=== PATIENT | male | born 1935 | race Caucasian/White ===

== ENCOUNTER → 2016-10-02 | Outpatient (CLI) | payer MEDICARE, OTHER | END | disposition home or self-care (01) | LOC: GMAL 10:42 | PROVIDERS: ATTEND Family Medicine | DX: D51.3 Other dietary vitamin B12 deficiency anemia (principal) ==

== ENCOUNTER → 2017-03-31 | Outpatient (CLI) | payer MEDICARE, OTHER | END | disposition home or self-care (01) | LOC: GMAL 11:10 | PROVIDERS: ATTEND Family Medicine | DX: D51.3 Other dietary vitamin B12 deficiency anemia (principal); R53.83 Other fatigue ==

== ENCOUNTER → 2017-06-02 | Outpatient (CLI) | payer MEDICARE, OTHER | END | disposition home or self-care (01) | LOC: GMAL 12:40 | PROVIDERS: ATTEND Family Medicine | DX: Z12.5 Encounter for screening for malignant neoplasm of prostate (principal) ==

== ENCOUNTER 2017-10-24 11:07 | Emergency (ER) | payer MEDICARE, OTHER ==
[2017-10-24] MEDS ORDERED: ONDANSETRON INJ 4 MG/2 ML VIAL IV ONE (11:27)
--- NOTE | 2017-10-24 11:27 | ED.PDOC ---
History of Present Illness - General Chief Complaint: GI Problem Stated Complaint: Diarrhea, vomiting, abdominal cramping Time Seen by Provider: 10/24/17 11:23 Information Source: patient - History of Present Illness Abdominal Pain Onset Location: RUQ, RLQ, flank Pain Radiation: no radiation Quality: moderate, cramping Timing/Duration: 1 hour Improving Factors: nothing Worsening Factors: nothing Associated Symptoms: back pain, diarrhea, fever/chills Review of Systems - Review of Systems Constitutional: States: chills, diaphoresis, weakness EENTM: Denies: blurred vision, double vision, ear pain, nose pain, throat pain, mouth pain Respiratory: Denies: cough, short of breath Cardiology: Denies: chest pain, edema, syncope Gastrointestinal/Abdominal: States: abdominal pain, diarrhea, nausea. Denies: constipation, vomiting Musculoskeletal: States: back pain. Denies: joint pain, joint swelling, muscle pain Skin: Denies: dryness, lesions Neurological: Denies: anxiety, tingling, tremors, weakness Endocrine: Denies: increased hunger, increased thirst, increased urine Hematologic/Lymphatic: Denies: blood clots, easy bleeding, easy bruising All other Systems: Reviewed and Negative Family Medical History - Family History Father Living Status: Cause of : CVA Physical Exam - Physical Exam General Appearance: Alert, Comfortable Eyes, Ears, Nose, Throat Exam: PERRL/EOMI, normal ENT inspection Neck: non-tender, full range of motion, supple Respiratory: lungs clear, normal breath sounds, no respiratory distress, no accessory muscle use Cardiovascular/Chest: normal peripheral pulses, regular rate, rhythm Peripheral Pulses: No deficit Gastrointestinal/Abdominal: normal bowel sounds, non tender, soft, no organomegaly Back Exam: normal inspection, no CVA tenderness, no vertebral tenderness Extremity: normal range of motion, non-tender, normal inspection 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 HAS RT SIDED ABD CRAMPING/BACK PAIN THAT STARTED AFTER THE ABD PAIN. WOULD BE CONCERNED FOR COLITS/DIVERTICULITIS, FOOD BORNE ILLNESS, DEHYDRATION, ELECTROLYTE DERANGMENT, ACS. 10/24/17 13:47 PT HAS MILD LEUKOCYTOSIS. NO RECURRENT DIARRHEA. CT SHOWS A RECENTLY PASSED URETERAL STONE. WHILE THIS MAY EXPLAIN THE FLANK PAIN BUT WOULD EXPLAIN THE DIARRHEA. WILL TREAT WITH PAIN MEDS, STRICT FOLLOW UP AND RETURN INSTRUCTIONS. - Results/Orders Results/Orders: 10/24/17 11:24 Abdoment/Pelvis w/o Contrast [CT] Stat 10/24/17 11:30 EKG STAT 10/24/17 11:36 CARDIAC ENZYME GROUP Stat 10/24/17 11:37 TROPONIN-I Stat Laboratory Results - last 24 hr 10/24/17 10/24/17 11:37 11:37 WBC 11.3 H RBC 4.42 L Hgb 13.3 L Hct 39.2 L MCV 88.8 MCH 30.0 MCHC 34.0 RDW 15.0 H Plt Count 178 MPV 8.8 Absolute Neuts (auto) 8.20 H Absolute Lymphs (auto) 2.20 Absolute Monos (auto) 0.70 Absolute Eos (auto) 0.10 Absolute Basos (auto) 0.10 Neutrophils % 72.6 Lymphocytes % 19.7 L Monocytes % 5.8 Eosinophils % 1.0 Basophils % 0.9 Sodium 139 Potassium 4.1 Chloride 104 Carbon Dioxide 26 Anion Gap 13.1 BUN 15 Creatinine 1.02 BUN/Creatinine Ratio 14.7 Random Glucose 131 H Serum Osmolality 280.2 Calcium 8.9 Total Bilirubin 0.4 AST 19 ALT 13 Alkaline Phosphatase 67 Serum Total Protein 7.3 Albumin 3.8 Globulin 3.5 Albumin/Globulin Ratio 1.1 - EKG/XRAY/CT EKG: Reymundo - SINUS REYMUNDO CARDIC AT 54. AXIS IS NORMAL. INTERVALS ARE NORMAL. T WAVE INVERSION IN II AND III. NO ACUTE ST SEGMENT ABNORMALITIES. IMPRESSION: SINUS BRADYCARDIA. Departure - Departure Clinical Impression: Flank pain, Nausea & vomiting, Ureteral colic, Bradycardia Abdominal pain Qualifiers: Abdominal location: right lower quadrant Qualified Code(s): R10.31 - Right lower quadrant pain Leukocytosis Qualifiers: Leukocytosis type: unspecified Qualified Code(s): D72.829 - Elevated white blood cell count, unspecified Time of Disposition: 13:50 Disposition: Discharge to Home or Self Care Condition: Good Departure Forms: ED Discharge - Pt. Copy, Patient Portal Self Enrollment Instructions: Diarrhea, DI for Abdominal Pain-Adult Diet: resume usual diet Activity: increase activity as tolerated Referrals: Hair Queen III, MD [Primary Care Provider] - 1-2 Weeks Prescriptions: Acetaminophen W/ Codeine [Tylenol W/ CODEINE #3] 1 ea PO Q4HR #20 Dicyclomine HCl [Bentyl] 20 mg PO Q8HRS #20 tab Ondansetron [Zofran Odt] 4 mg PO Q8HRS #20 tab Home Medications: Ambulatory Orders Acetaminophen W/ Codeine [Tylenol W/ CODEINE #3] 1 ea PO Q4HR #20 10/24/17 Dicyclomine HCl [Bentyl] 20 mg PO Q8HRS #20 tab 10/24/17 Ondansetron [Zofran Odt] 4 mg PO Q8HRS #20 tab 18
--- NOTE | 2017-10-24 12:21 | CT ---
EXAM DESCRIPTION: Abdoment/Pelvis w/o Contrast: Computed Tomography. CLINICAL HISTORY: ABD PAIN/FLANK PAIN, DIARRHEA COMPARISON: None. TECHNIQUE: Spiral-axial scans at 5.0 mm intervals through the abdomen and pelvis. Coronal and sagittal 2.0mm reconstructions. No IV or oral contrast. Total Exam DLP: 1015.28 mGy-cm. This exam was performed according to our departmental CT dose-optimization program which includes automated exposure control, adjustment of the mA and/or kV according to patient size and/or use of iterative reconstruction technique; to reduce radiation dose to as low as reasonably achievable (ALARA). FINDINGS: Kidneys and Ureters: Mild hydronephrosis right kidney. Less than 2 mm diameter radiodense objects in the superior and inferior collecting system. Minimal distention of the mid and distal right ureter. 3.9 x 2.3 mm radiodense stone in the inferior right lateral posterior urinary bladder. Bilateral perinephric stranding symmetric. No radiodense stones left kidney with no left hydroureter or periureteral edema. Pelvic Organs: Surgical clips in the pelvis with minimal fatty stranding. No definite fluid in the anterior peritoneal reflection and no soft tissue masses. Lung and pleura bases: Bilateral posterior dependent lower lobe atelectasis with no effusion. Coronary artery stents. Liver, spleen, stomach, and adrenal glands: Small sliding gastric hernia. No focal lesions in the other solid organs with normal size. Pancreas, Gallbladder, Ducts: Fatty infiltration of the pancreas. Gallbladder visualized. Common bile duct nondistended. Aorta: Minimal arthroscopic calcification including some of the ostia of the major branch vessels. Normal caliber. Small Bowel: Unremarkable. Terminal Ileum/Cecum: negative. Appendix not seen. Normal density of surrounding fat. Colon: Decompressed with diverticula descending colon and sigmoid. Minimal redundancy of the sigmoid. No diverticula or complications. Mesentery: Irregular calcification and soft tissue stranding abutting the junction of the distal duodenum and proximal jejunum in the midline abdomen. No definite soft tissue mass. No surgical clips. No free air or free fluid. No ascites. Spine and Bony PElvis: Disc space narrowing L4-5 with spondylosis and significant bilateral foraminal narrowing. Gas formation in the L5-S1 disc with disc space narrowing and bilateral significant foraminal narrowing. Minimal bilateral joint space narrowing hips. No bone destruction. Abdominal Wall/Back Soft Tissues: Bilateral small fatty short inguinal hernias not containing bowel. IMPRESSION: 1. 3.9 mm stone recently passed into the urinary bladder from the right kidney and ureter. Mild hydronephrosis and hydroureter with periureteral edema. Smaller nonobstructing stones in the right kidney. 2. No abdominal or pelvic mass. No free fluid or free air. Old surgical scarring with calcification, no soft tissue mass lower mid epigastrium abutting the junction of the duodenum and proximal jejunum. Small sliding gastric hiatal hernia. 2. Atherosclerotic calcifications in the aorta. Coronary artery stents. Fatty infiltration of the pancreas. Periarticular versus of the distal colon without diverticulitis. Spondylosis L4-5 and L5-S1 with foraminal narrowing. Small bilateral short fatty inguinal hernias not containing bowel. Electronically signed by: Estrada Angeles MD 10/24/2017 12:21 PM [facility]
[2017-10-24 16:05] VITALS: BP 167/74; TEMP 98.1; O2SAT 97
== END 2017-10-24 15:00 | disposition home or self-care (01) ==
LOC: ER 11:07
DX: N13.2 Hydronephrosis with renal and ureteral calculous obstruction (principal); R19.7 Diarrhea, unspecified; R00.1 Bradycardia, unspecified; D72.829 Elevated white blood cell count, unspecified
CPT/HCPCS: 36415; 74176; 80053; 82550; 82553; 84484; 85025; 93005; J2405

== ENCOUNTER → 2017-11-26 | Outpatient (CLI) | payer MEDICARE, OTHER ==
--- NOTE | 2017-11-26 15:33 | US ---
EXAM DESCRIPTION: Carotid Duplex CLINICAL HISTORY: OCCLUSION AND STENOSIS COMPARISON: None Available. TECHNIQUE: Carotid Doppler ultrasound FINDINGS: Right Submitted images show tortuous right CCA with mild intimal thickening. There is soft plaque at the carotid bulb without significant stenosis. The following flow velocities were obtained: Common carotid artery peak systolic flow velocity measures 75 cm/s. Internal carotid artery peak systolic flow velocity measures 43 cm/s. External carotid artery peak systolic flow velocity measures 76 cm/s. Flow in the right vertebral artery is not well seen. Axial images show 15% area stenosis of the right internal carotid artery above the bulb. There is 27% area stenosis of the right carotid bulb. Left Submitted images show normal caliber of the left common carotid artery with calcified plaque at the bifurcation. Axial images show 77% area stenosis of the left ICA and 54% area stenosis of the left carotid bulb. No significantly elevated flow velocities. The following flow velocities were obtained: Common carotid artery peak systolic flow velocity measures 93 cm/s. Internal carotid artery peak systolic flow velocity measures 10 8 cm/s. External carotid artery peak systolic flow velocity measures 53 cm/s. Flow in the left vertebral artery is antegrade. The internal carotid to common carotid peak systolic flow velocity ratios are normal at 0.6 on the right and 1.2 on the left. IMPRESSION: No significantly elevated flow velocities to suggest hemodynamically significant stenosis. Transverse sonographic images suggest 77% area stenosis of the left ICA and 54% area stenosis of the left carotid bulb. The right vertebral artery was not well visualized. Electronically signed by: Suresh Villalba MD 11/26/2017 3:31 PM CDT
--- NOTE | 2017-11-26 15:37 | US ---
EXAM DESCRIPTION: Abdomen,Complete CLINICAL HISTORY: ABDOMIN PAIN COMPARISON: CT abdomen and pelvis from October 24, 2017 TECHNIQUE: Complete abdominal ultrasound FINDINGS: Visualized portions of the pancreas are unremarkable. No peripancreatic fluid. Bowel gas obscures some areas. Normal caliber of the aorta. Normal appearance of the inferior vena cava. Liver parenchyma is homogeneous in texture with normal echogenicity. No liver mass or intrahepatic bile duct dilatation. No liver surface irregularity. Normal appearance of hepatic veins and portal vein. Liver length of 15 cm is normal. Gallbladder appears normal with no intraluminal stones. No gallbladder wall thickening. Common bile duct is normal in caliber measuring 5.4 mm. The right kidney measures 9.6 cm in length. Normal to mildly increased renal cortical echogenicity. The renal cortical thickness appears decreased at the upper pole suggesting scarring. No right renal mass, shadowing stone or cyst. There is no hydronephrosis. Spleen is normal in size. No focal splenic lesion. The left kidney measures 10 cm in length. Mildly increased renal cortical echogenicity. Correlate with renal function tests. The renal cortical thickness appears mildly decreased. No left renal mass, shadowing stone or cyst. There is no hydronephrosis. IMPRESSION: Mildly increased renal cortical echogenicity with areas of cortical thinning. Correlate with renal function tests. No acute upper abdominal process. Electronically signed by: Suresh Villalba MD 11/26/2017 3:36 PM CDT
== END | disposition home or self-care (01) ==
LOC: US 08:13
PROVIDERS: ATTEND Family Medicine
DX: I65.23 Occlusion and stenosis of bilateral carotid arteries (principal); R10.9 Unspecified abdominal pain

== ENCOUNTER → 2017-12-10 | Outpatient (CLI) | payer MEDICARE, OTHER ==
--- NOTE | 2017-12-10 14:37 | CT ---
EXAM DESCRIPTION: CTA Neck CLINICAL HISTORY: 82 years, Male, CAROTID ARTERY STENOSIS COMPARISON: Carotid Doppler sonogram November 26, 2017 TECHNIQUE: Rapid bolus administration of standard adult dose of nonionic iodinated IV contrast was performed with thin-section axial scanning of the neck performed in a dynamic fashion. Reconstructed multiplanar and three dimensional MIP images created on a separate dedicated workstation are reviewed along with the source axial images and stored in the patient's medical record. FINDINGS: Axial source data images reveal positive enhancement of the aortic arch and origins of right brachiocephalic, left common carotid and left subclavian arteries. There is tortuosity of the vascular origins. Positive enhancement of the cervical carotid and vertebral arteries. The left vertebral artery is dominant and the right is very small. Axial images show positive enhancement of the internal carotid and external carotid arteries at the carotid bifurcations bilaterally. Calcified and noncalcified plaque is seen in the bilateral carotid bulbs, left greater than right. Recent carotid Doppler sonogram axial images suggested 77% stenosis of the left ICA. This does not appear to be the case on the contrast-enhanced CT images. There is normal enhancement of internal carotid arteries from the carotid bifurcation to the skull base. Positive enhancement of the vessels of the [place] of [place]. No cervical mass or adenopathy. Reformatted coronal and sagittal images show widely patent origins of right internal and external carotid arteries. There is plaque at the right carotid bulb without significant stenosis. Narrowing is approximately 25-30% in the right carotid bulb with widely patent ICA above the level of the bulb. Calcification of the carotid siphon is noted. In evaluating the left carotid bifurcation, soft plaque and calcified plaque is seen in the left carotid bulb extending into the origin of the left ICA. There is approximately 50-60% % narrowing of the bulb. The left external carotid artery is widely patent. Above the bulb, left ICA is widely patent. Normal enhancement to the skull base. There is calcification of the carotid siphon. Coronal reformatted images would suggest mild approximately 50% narrowing of the left carotid bulb. Above the level of the bulb and the left ICA is widely patent. Mild calcified plaque at the origin of the left external carotid artery. Degenerative changes are seen in the mid and lower C-spine. Shaded surface display and MIP images of the carotid bifurcations are evaluated. Findings suggest mild narrowing of the right carotid bulb approximately 20% and with moderate narrowing of the left carotid bulb approximately 50-60 %. IMPRESSION: 25% narrowing of the right carotid bulb. 50-60% narrowing of the left carotid bulb. Dominant left vertebral artery. This exam was performed according to our departmental dose-optimization program, which includes automated exposure control, adjustment of the mA and/or kV according to patient size and/or use of iterative reconstruction technique. Total DLP dose 75.22 mGycm. Electronically signed by: Suresh Villalba MD 12/10/2017 2:35 PM CDT
== END ==
LOC: CT 08:58
PROVIDERS: ATTEND Family Medicine
DX: I65.23 Occlusion and stenosis of bilateral carotid arteries (principal)

== ENCOUNTER 2018-04-20 05:32 | Day surgery (SDC) | payer MEDICARE, OTHER ==
[2018-04-20] MEDS ORDERED: TROP 1%/CYCLOPEN 1%/PHENYL 2% DROPS ONE (05:58)
[2018-04-20] MEDS ORDERED: PROPARACAINE 0.5% OPHTH SOL 15 ML BTTL ONE (05:58)
[2018-04-20] MEDS ORDERED: MIDAZOLAM INJ 2 MG/2 ML VIAL ONE (08:48)
[2018-04-20] MEDS ORDERED: PROPARACAINE 0.5% OPHTH SOL 15 ML BTTL RIGHT_EYE ONE (08:50)
[2018-04-20] MEDS ORDERED: TOBRAMYCIN SULF 0.3 % OPHT SOL 1 DROP RIGHT_EYE ONE ×2 (09:01→09:17)
[2018-04-20] MEDS ORDERED: LIDOCAINE 1% PF 2 ML AMP INJ ONE (09:01)
[2018-04-20] MEDS ORDERED: DEXAMETHASONE 0.1% OPHTH SOL 1 DROP RIGHT_EYE ONE ×2 (09:01→09:17)
[2018-04-20] MEDS ORDERED: BRIMONIDINE 0.2% OPHTH DROPS RIGHT_EYE ONE ×2 (09:02→09:17)
== END 2018-04-20 10:10 | disposition home or self-care (01) ==
LOC: AMB 05:32
PROVIDERS: ATTEND Ophthalmology
DX: H25.11 Age-related nuclear cataract, right eye (principal); I10 Essential (primary) hypertension; I25.10 Atherosclerotic heart disease of native coronary artery without angina pectoris; E66.9 Obesity, unspecified; Z88.0 Allergy status to penicillin; Z91.013 Allergy to seafood; Z79.82 Long term (current) use of aspirin; Z79.899 Other long term (current) drug therapy
CPT/HCPCS: 00142; 66984; J2250

== ENCOUNTER 2018-05-04 05:33 | Day surgery (SDC) | payer MEDICARE, OTHER ==
[2018-05-04] MEDS ORDERED: TROP 1%/CYCLOPEN 1%/PHENYL 2% DROPS ONE (08:31)
[2018-05-04] MEDS ORDERED: PROPARACAINE 0.5% OPHTH SOL 15 ML BTTL ONE (08:31)
[2018-05-04] MEDS ORDERED: PROPARACAINE 0.5% OPHTH SOL 15 ML BTTL LEFT_EYE ONE (09:35)
[2018-05-04] MEDS ORDERED: MIDAZOLAM INJ 2 MG/2 ML VIAL ONE (09:38)
[2018-05-04] MEDS ORDERED: LIDOCAINE 1% PF 2 ML AMP INJ ONE (09:46)
[2018-05-04] MEDS ORDERED: DEXAMETHASONE 0.1% OPHTH SOL 1 DROP LEFT_EYE ONE ×2 (09:47→09:58)
[2018-05-04] MEDS ORDERED: TOBRAMYCIN SULF 0.3 % OPHT SOL 1 DROP LEFT_EYE ONE ×2 (09:48→09:58)
[2018-05-04] MEDS ORDERED: BRIMONIDINE 0.2% OPHTH DROPS LEFT_EYE ONE ×2 (09:48→09:58)
== END 2018-05-04 10:38 | disposition home or self-care (01) ==
LOC: AMB 05:33
PROVIDERS: ATTEND Ophthalmology
DX: H25.12 Age-related nuclear cataract, left eye (principal); I10 Essential (primary) hypertension; I25.10 Atherosclerotic heart disease of native coronary artery without angina pectoris; Z79.899 Other long term (current) drug therapy
CPT/HCPCS: 00142; 66984; J2250

== ENCOUNTER → 2018-06-08 | Outpatient (CLI) | payer MEDICARE, OTHER | LOC: GMAL 11:07 | PROVIDERS: ATTEND Family Medicine | DX: D51.3 Other dietary vitamin B12 deficiency anemia (principal); Z12.5 Encounter for screening for malignant neoplasm of prostate; R53.83 Other fatigue; E55.9 Vitamin D deficiency, unspecified | CPT/HCPCS: 82306; 82607; 84443; G0103 ==

== ENCOUNTER 2018-09-28 14:15 | Emergency (ER) | payer MEDICARE, OTHER ==
[2018-09-28] MEDS ORDERED: GLUCAGON INJ 1 MG VIAL IM ONE (14:36)
[2018-09-28] MEDS ORDERED: LIDOCAINE HCL 2% (MOUTH-THROAT) 15 ML UD MT ONE (15:11)
--- NOTE | 2018-09-28 16:15 | ED.PDOC ---
History of Present Illness - General Chief Complaint: ENT Problem Stated Complaint: throat discomfort Time Seen by Provider: 09/28/18 14:18 Source: patient Exam Limitations: no limitations - History of Present Illness Initial Comments: the patient's 83-year-old male presenting to the emergency room with what appears to be a distal esophageal food bolus impaction. The patient does have a history of esophageal stricture and was dilated approximately 4 years ago he thinks. He has had a couple of episodes of food hanging up recently but they passed eventually. This time it has been present for a little more than 5 hours. No distress but he is unable to pass even any liquids. It is uncomfortable for him. Vital signs are stable. He handles his secretions well. Timing/Duration: 4-6 hours Severity: moderate Improving Factors: nothing Worsening Factors: nothing Associated Symptoms: denies symptoms Allergies/Adverse Reactions: Allergies Penicillins Allergy (Verified 09/28/18 14:35) Unknown Shellfish Allergy Allergy (Verified 09/28/18 14:35) Rash Home Medications: Ambulatory Orders Acyclovir 5 % Cream [Zovirax Cream] 5 gm TOP PRN 09/28/18 Aspirin [Aspirin Adult Low Dose] 81 mg PO DAILY 09/28/18 Atorvastatin Calcium [Lipitor] 80 mg PO DAILY 09/28/18 Carbamazepine ER [Carbatrol] 200 mg PO DAILY 09/28/18 Clotrimazole (Topical) [Clotrimazole] 1 % EX PRN 09/28/18 Divalproex Sodium [Depakote ER] 500 mg PO TID 09/28/18 Fluoxetine HCl [PROzac] 20 mg PO DAILY 09/28/18 Losartan Potassium & Hydrochlo [Hyzaar 50-12.5 mg] 1 tab PO DAILY 09/28/18 Metoprolol Succinate [Toprol XL] 50 mg PO DAILY 09/28/18 Mirtazapine [Remeron] 15 mg PO 15 09/28/18 Naproxen Sodium [Aleve] 220 mg PO BID 09/28/18 Sildenafil Citrate [Viagra] 100 mg PO PRN 09/28/18 Tramadol HCl [Ultram] 100 mg PO Q6H PRN 09/28/18 Review of Systems - Review of Systems Constitutional: States: no symptoms reported EENTM: States: no symptoms reported Respiratory: States: no symptoms reported Cardiology: States: no symptoms reported Gastrointestinal/Abdominal: States: see HPI Genitourinary: States: no symptoms reported Musculoskeletal: States: no symptoms reported Skin: States: no symptoms reported Neurological: States: no symptoms reported Endocrine: States: no symptoms reported All other Systems: No Change from Baseline Past Medical History (General) - Patient Medical History Hx Stroke: No Hx Cardiac Disorders: Yes - stents Hx Congestive Heart Failure: No Hx Hypertension: Yes Hx Diabetes: No Hx Gastroesophageal Reflux: - strictures Hx Cancer: Yes - prostate Hx MRSA: No Surgical History: other - Vaccination History Hx Influenza Vaccination: Yes Hx Pneumococcal Vaccination: Yes - Social History Hx Tobacco Use: No Hx Alcohol Use: No - Activities of Daily Living Retirement/Assisted Living (if applicable):: [facility] Family Medical History - Family History Father Living Status: Cause of : CVA Physical Exam - Physical Exam General Appearance: Alert, Comfortable, No apparent distress Eye Exam: bilateral normal Ears, Nose, Throat: hearing grossly normal - hronic decreased hearing bilaterally, normal ENT inspection, normal pharynx Neck: full range of motion, supple Respiratory: lungs clear, normal breath sounds, no respiratory distress, no accessory muscle use Cardiovascular/Chest: normal peripheral pulses, no edema, other - regular rate Peripheral Pulses: radial,right: 2+, radial,left: 2+ Gastrointestinal/Abdominal: non tender, soft Rectal Exam: deferred Back Exam: no CVA tenderness, no vertebral tenderness Extremity: normal range of motion, non-tender, normal inspection, no pedal edema, normal capillary refill 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 The patient has failed a trial of positional changes and movement mechanisms to try and get the bolus to pass. Additionally a dose of IM glucagon failed to prove any benefit and a small dose of viscous lidocaine also failed to relax the esophagus and allow the bolus to pass. Given the history of previous stricture and the fact that the patient is able to manage his secretions without much difficulty, NG tube was deferred, as the risk seemed to outweigh the benefits at this time. Transferring to [facility] for specialty care. the patient should be able to safely go by private car. Departure - Departure Clinical Impression: Food impaction of esophagus Qualifiers: Encounter type: initial encounter Qualified Code(s): T18.128A - Food in esophagus causing other injury, initial encounter Disposition: Transfer to Hospital Condition: Fair Departure Forms: ED Discharge - Pt. Copy, Patient Portal Self Enrollment Home Medications: Ambulatory Orders Acyclovir 5 % Cream [Zovirax Cream] 5 gm TOP PRN 09/28/18 Aspirin [Aspirin Adult Low Dose] 81 mg PO DAILY 09/28/18 Atorvastatin Calcium [Lipitor] 80 mg PO DAILY 09/28/18 Carbamazepine ER [Carbatrol] 200 mg PO DAILY 09/28/18 Clotrimazole (Topical) [Clotrimazole] 1 % EX PRN 09/28/18 Divalproex Sodium [Depakote ER] 500 mg PO TID 09/28/18 Fluoxetine HCl [PROzac] 20 mg PO DAILY 09/28/18 Losartan Potassium & Hydrochlo [Hyzaar 50-12.5 mg] 1 tab PO DAILY 09/28/18 Metoprolol Succinate [Toprol XL] 50 mg PO DAILY 09/28/18 Mirtazapine [Remeron] 15 mg PO 15 09/28/18 Naproxen Sodium [Aleve] 220 mg PO BID 09/28/18 Sildenafil Citrate [Viagra] 100 mg PO PRN 09/28/18 Tramadol HCl [Ultram] 100 mg PO Q6H PRN 09/28/18 Transfer to Outside Facility - Transfer Information Accepting Provider:: dr wise Accepting Facility: [facility] Reason for Transfer: required specialist not available
[2018-09-28 16:24] VITALS: BP 189/86; TEMP 98.3; O2SAT 100
== END 2018-09-28 16:35 | disposition short-term general hospital (02) ==
LOC: ER 14:15
DX: T18.128A Food in esophagus causing other injury, initial encounter (principal); I10 Essential (primary) hypertension; Z95.5 Presence of coronary angioplasty implant and graft; Z85.46 Personal history of malignant neoplasm of prostate; Z79.899 Other long term (current) drug therapy; Z88.0 Allergy status to penicillin; Z91.013 Allergy to seafood

== ENCOUNTER 2018-11-20 05:37 | Day surgery (SDC) | payer MEDICARE, OTHER ==
[2018-11-20] MEDS ORDERED: PROPOFOL 200 MG/20 ML VIAL IV ONE (07:00)
[2018-11-20] MEDS: LACTATED RINGERS 1,000 ML ONE (08:40)
--- NOTE | 2018-11-20 09:50 | OP ---
DATE OF PROCEDURE: 11/20/18 PREPROCEDURE DIAGNOSIS: 1. Dysphagia. POSTPROCEDURE DIAGNOSIS: 1. Schatzki's ring, status post dilation. 2. Hiatal hernia. 3. Normal stomach and duodenum. PROCEDURE: 1. Esophagogastroduodenoscopy. SURGEON: Jalen Mcdaniels MD COMPLICATIONS: No immediate complications. SEDATION: The patient was sedated via IV propofol by the Anesthesia Department. CONSENT: Prior to the procedure, risks, benefits and alternatives to the therapy were discussed with the patient. The risks included bleeding, infection, perforation and . The patient agreed to the procedure and signed a consent. PREPROCEDURE ANESTHESIA ASSESSMENT: An examination revealed no contraindication to sedation. Airway examination demonstrated a Mallampati class type 2, ASA grade assessment type 2. Throughout the procedure, the patient's blood pressure and additional vitals were closely monitored. PROCEDURE: The patient was placed in the left lateral decubitus position. Bite block was placed in the mouth between the teeth. The Olympus endoscope was introduced through the oropharynx, esophagus, stomach and the second portion of the duodenum. The scope was retracted and the mucosa visualized. The entirety of the exam was performed under direct visualization. Retroflexion was performed in the stomach. The patient tolerated the procedure well. FINDINGS: 1. A Schatzki's ring was visualized at approximately 38 cm from the incisors. Preparations were made for dilation with a Savary wire. This was advanced through the scope and the scope was removed. The Savary 19 mm tube was advanced over the wire with subsequent dilation achieving mild to moderate resistance. 2. A medium sized hiatal hernia was found in the distal esophagus. The diaphragmatic pinch was found at 42 cm from the incisors and the gastric folds were found at 39 cm from the incisors. 3. Normal stomach. 4. Normal duodenum. IMPRESSION: 1. Medium sized hiatal hernia. 2. Mild Schatzki's ring in the distal esophagus, status post Savary dilation up to 19 mm. RECOMMENDATION: 1. Return the patient home. 2. Resume previous diet. 3. Continue acid suppressive medication and present regimen. 4. Return to my office in the next 1 to 2 weeks to followup. 5. The findings were discussed with the patient and family members. #[id number] [facility]
[2018-11-20 10:17] VITALS: BP 128/60; TEMP 97; O2SAT 96
== END 2018-11-20 10:15 ==
LOC: AMB 05:37
PROVIDERS: ATTEND Internal Medicine Gastroenterology
DX: K22.2 Esophageal obstruction (principal); K44.9 Diaphragmatic hernia without obstruction or gangrene; I10 Essential (primary) hypertension; E78.00 Pure hypercholesterolemia, unspecified; K21.9 Gastro-esophageal reflux disease without esophagitis; Z88.0 Allergy status to penicillin; Z79.899 Other long term (current) drug therapy
CPT/HCPCS: 00731; 43248; J3490; J7120

== ENCOUNTER 2019-06-10 09:44 | Emergency (ER) | payer MEDICARE, OTHER ==
[2019-06-10] MEDS ORDERED: SODIUM CHLORIDE 0.9% (FLUSH) 10 ML SYG IV PRN (09:51)
[2019-06-10] MEDS ORDERED: ASPIRIN TABLET 325 MG TAB PO ONE (09:51)
[2019-06-10] MEDS ORDERED: NITROGLYCERIN 0.4 MG 25 EA TAB SL ONE (09:51)
[2019-06-10] MEDS ORDERED: ASPIRIN (CHEWABLE) 81 MG TAB ONE (09:57)
[2019-06-10 10:03] VITALS: TEMP 97.9
[2019-06-10] MEDS ORDERED: ASPIRIN (CHEWABLE) 81 MG TAB PO ONE (10:06)
--- NOTE | 2019-06-10 10:11 | RAD ---
EXAM DESCRIPTION: Chest,1 View CLINICAL HISTORY: 84 years Male, chest pain COMPARISON: None available. TECHNIQUE: AP radiograph of the chest was obtained. FINDINGS: Trachea is midline.The cardiomediastinal silhouette is normal in size. The pulmonary vasculature is within normal limits.The lungs are clear with no acute consolidation.No evidence of pleural effusions. IMPRESSION: No acute cardiopulmonary process. Electronically signed by: Tone Stark MD 06/10/2019 10:09 AM CDT
--- NOTE | 2019-06-10 11:35 | ED.PDOC ---
History of Present Illness - General Chief Complaint: Chest Pain/WA Stated Complaint: Chest pain Time Seen by Provider: 06/10/19 09:50 Source: patient, RN notes reviewed, Vital Signs reviewed, EMS notes reviewed, family Exam Limitations: no limitations - History of Present Illness Initial Comments: Patient is an 84-year-old white male who presents with complaints of chest pain. This chest pain started after eating breakfast this morning at 8:15 AM. And tightness. It radiates to both shoulders and down his left arm. Pain is not improved when he sits up. He complains of some mild shortness of breath and some nausea. No vomiting or diarrhea. Patient denies any headache, blurry vision, weakness or paresthesias. Nothing seems to make the pain better or worse. He is unsure of what caused the pain to start with. Pain was 8/10 just prior to arrival. Severity/Quality: severe, pressure, tightness Location: substernal Chest Pain Radiation: arms, shoulders Activities at Onset: none Prior Chest Pain/Cardiac Workup: no prior chest pain, no prior cardiac workup Improving Factors: nothing Worsening Factors: nothing Nitro Today/Relief: no nitro taken today Aspirin Treatment Today: 81 mg x 1 Associated Symptoms: fatigue, nausea/vomiting, shortness of breath Allergies/Adverse Reactions: Allergies Penicillins Allergy (Verified 06/10/19 10:03) Unknown Shellfish Allergy Allergy (Verified 06/10/19 10:03) Rash Home Medications: Ambulatory Orders Fluoxetine HCl 20 mg PO DAILY 11/17/18 Metoprolol Succinate [Metoprolol Succinate ER] 50 mg PO DAILY 11/17/18 Ondansetron [Zuplenz] 4 mg PO PRN PRN 11/17/18 Oxcarbazepine 150 mg PO BID 11/17/18 Pantoprazole Tablet [Protonix] 40 mg PO BID 11/17/18 Rosuvastatin Calcium 0.5 tablet PO DAILY 11/17/18 Aspirin [Aspirin Low Strength] 81 mg PO DAILY 06/10/19 Divalproex Sodium [Depakote ER] 250 mg PO BEDTIME 06/10/19 Omeprazole Magnesium [Prilosec Otc] 20 mg PO DAILY 06/10/19 Rizatriptan Benzoate [Maxalt] 10 mg PO Q2H PRN 06/10/19 Sucralfate Tab [Carafate Tab] 1 gm PO ACHS 06/10/19 Review of Systems - Review of Systems Constitutional: States: see HPI, malaise, weakness EENTM: States: no symptoms reported, see HPI Respiratory: States: see HPI, short of breath Cardiology: States: see HPI, chest pain. Denies: palpitations, syncope Gastrointestinal/Abdominal: States: see HPI, nausea. Denies: abdominal pain, vomiting Genitourinary: States: no symptoms reported Musculoskeletal: States: no symptoms reported Skin: States: no symptoms reported - diaphoresis Neurological: States: see HPI Endocrine: States: no symptoms reported Hematologic/Lymphatic: States: no symptoms reported All other Systems: Reviewed and Negative Past Medical History (General) - Patient Medical History Hx Stroke: No Hx Cardiac Disorders: Yes - Dyslipidemia Hx Congestive Heart Failure: No Hx Hypertension: Yes Hx Diabetes: No Hx Gastroesophageal Reflux: Yes Hx Cancer: Yes - prostate Hx MRSA: No - Vaccination History Hx Influenza Vaccination: Yes Hx Pneumococcal Vaccination: Yes - Social History Hx Tobacco Use: No Hx Alcohol Use: No Family Medical History - Family History Father Living Status: Cause of : CVA Physical Exam - Physical Exam General Appearance: Alert, Well Developed, Well Groomed, Well Hydrated, Well Nourished Eyes, Ears, Nose, Throat Exam: PERRL/EOMI, normal ENT inspection, pharynx normal Neck: non-tender, full range of motion, supple, normal inspection Respiratory: chest non-tender, lungs clear, normal breath sounds, no respiratory distress, no accessory muscle use Cardiovascular/Chest: normal peripheral pulses, regular rate, rhythm, no edema, no gallop, no JVD, no murmur Peripheral Pulses: radial,right: 2+, radial,left: 2+ Gastrointestinal/Abdominal: normal bowel sounds, non tender, soft, no organomegaly, no pulsatile mass Extremity: normal range of motion, non-tender, normal inspection, no pedal edema 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 06/10/19 11:40 patient discussed with Luis Armando blanton [place] 15 hours in regards to admission. Agrees with plan of care to obtain 1 more troponin at 12:15 and then admitted to the hospital for further evaluation. I've discussed the plan and care with the patient and he voices understanding and agreement with the plan of care. 06/10/19 13:31 patient remains chest pain-free. Repeat troponin came back positive at 0.13. I have contacted Makenna Underwood, here [facility] and we agree that the patient should be transferred out for further care by physician's aide. I have called [facility] and spoken with cardiology, Dr. CEDILLO and he agrees with my assessment and plan for transfer. I then spoke to the hospitalist, Dr. BROWN and she accepts patient for transfer. Just the plan of care with the patient and he voices understanding and agreement with the plan of care. Ryan Hodges M.D. #[id number] - Results/Orders Results/Orders: 06/10/19 09:51 IV Care:Saline Lock per Protoc QSHIFT Telemetry .ONCE Sodium Chloride 0.9% (Flush) [Saline Flush Syringe] 10 ml IV PRN PRN EKG Stat Pulse Ox Stat 06/10/19 09:52 EKG Assessment ONCE Pulse Oximetry Assessment DAILY Laboratory Results - last 24 hr 06/10/19 09:55 WBC 7.4 RBC 4.52 L Hgb 13.1 L Hct 38.4 L MCV 85.0 MCH 29.1 MCHC 34.2 RDW 14.7 H Plt Count 237 MPV 8.3 Absolute Neuts (auto) 4.30 Absolute Lymphs (auto) 2.20 Absolute Monos (auto) 0.70 Absolute Eos (auto) 0.10 Absolute Basos (auto) 0.00 Neutrophils % 58.4 Lymphocytes % 30.0 Monocytes % 9.8 H Eosinophils % 1.4 Basophils % 0.4 PT 9.4 INR 0.94 PTT (SP) 24.8 Sodium 129 L Potassium 4.1 Chloride 93 L Carbon Dioxide 23 Anion Gap 17.1 BUN 16 Creatinine 0.95 BUN/Creatinine Ratio 16.8 Random Glucose 127 H Serum Osmolality 261.7 L Calcium 9.2 Magnesium 1.9 Total Bilirubin 0.6 Direct Bilirubin < 0.1 Indirect Bilirubin 0.5 AST 24 ALT 13 Alkaline Phosphatase 106 Creatine Kinase 58 CK-MB (CK-2) 1.3 CK-MB (CK-2) % Not Reportable Troponin I < 0.02 B-Natriuretic Peptide 225.0 H* Serum Total Protein 7.9 Albumin 4.1 EXAM DESCRIPTION: Chest,1 View CLINICAL HISTORY: 84 years Male, chest pain COMPARISON: None available. TECHNIQUE: AP radiograph of the chest was obtained. FINDINGS: Trachea is midline.The cardiomediastinal silhouette is normal in size. The pulmonary vasculature is within normal limits.The lungs are clear with no acute consolidation.No evidence of pleural effusions. IMPRESSION: No acute cardiopulmonary process. Electronically signed by: Tone Stark MD 06/10/2019 10:09 AM EKG: performed on 10 June 2019 at 0949 hrs.: normal sinus rhythm at 63 bpm, left axis deviation, no ST or T-wave changes, abnormal EKG. No comparison EKG. 06/10/19 09:51 IV Care:Saline Lock per Protoc QSHIFT Telemetry .ONCE Sodium Chloride 0.9% (Flush) [Saline Flush Syringe] 10 ml IV PRN PRN EKG Stat Pulse Ox Stat Laboratory Results - last 24 hr 06/10/19 06/10/19 09:55 12:27 WBC 7.4 RBC 4.52 L Hgb 13.1 L Hct 38.4 L MCV 85.0 MCH 29.1 MCHC 34.2 RDW 14.7 H Plt Count 237 MPV 8.3 Absolute Neuts (auto) 4.30 Absolute Lymphs (auto) 2.20 Absolute Monos (auto) 0.70 Absolute Eos (auto) 0.10 Absolute Basos (auto) 0.00 Neutrophils % 58.4 Lymphocytes % 30.0 Monocytes % 9.8 H Eosinophils % 1.4 Basophils % 0.4 PT 9.4 INR 0.94 PTT (SP) 24.8 Sodium 129 L Potassium 4.1 Chloride 93 L Carbon Dioxide 23 Anion Gap 17.1 BUN 16 Creatinine 0.95 BUN/Creatinine Ratio 16.8 Random Glucose 127 H Serum Osmolality 261.7 L Calcium 9.2 Magnesium 1.9 Total Bilirubin 0.6 Direct Bilirubin < 0.1 Indirect Bilirubin 0.5 AST 24 ALT 13 Alkaline Phosphatase 106 Creatine Kinase 58 56 CK-MB (CK-2) 1.3 1.7 CK-MB (CK-2) % Not Reportable Not Reportable Troponin I < 0.02 0.13 H* B-Natriuretic Peptide 225.0 H* Serum Total Protein 7.9 Albumin 4.1 Departure - Departure Clinical Impression: NSTEMI, initial episode of care, Elevated troponin I level Time of Disposition: 13:36 Disposition: Transfer to Hospital Condition: Fair Referrals: Hair Queen III, MD [Primary Care Provider] - 1-2 Weeks Home Medications: Ambulatory Orders Fluoxetine HCl 20 mg PO DAILY 11/17/18 Metoprolol Succinate [Metoprolol Succinate ER] 50 mg PO DAILY 11/17/18 Ondansetron [Zuplenz] 4 mg PO PRN PRN 11/17/18 Oxcarbazepine 150 mg PO BID 11/17/18 Pantoprazole Tablet [Protonix] 40 mg PO BID 11/17/18 Rosuvastatin Calcium 0.5 tablet PO DAILY 11/17/18 Aspirin [Aspirin Low Strength] 81 mg PO DAILY 06/10/19 Divalproex Sodium [Depakote ER] 250 mg PO BEDTIME 06/10/19 Omeprazole Magnesium [Prilosec Otc] 20 mg PO DAILY 06/10/19 Rizatriptan Benzoate [Maxalt] 10 mg PO Q2H PRN 06/10/19 Sucralfate Tab [Carafate Tab] 1 gm PO ACHS 06/10/19 Critical Care Note - Critical Care Note Total Time (mins): 35 Transfer to Outside Facility - Transfer Information Decision to Transfer Date: 06/10/19 Decision to Transfer Time: 13:10 Reason for Transfer: specialized care not available Accepting Provider:: Dr. Brown Accepting Facility: [facility]
[2019-06-10] MEDS ORDERED: NITROGLYCERIN 2% 1 GM UD TOP ONE (12:01)
[2019-06-10] MEDS ORDERED: ENOXAPARIN SODIUM 100 MG/ML SYG SUBCU ONE (13:47)
[2019-06-10 14:04] VITALS: BP 165/80; O2SAT 97
== END 2019-06-10 14:05 | disposition short-term general hospital (02) ==
LOC: ER 09:44
DX: I21.4 Non-ST elevation (NSTEMI) myocardial infarction (principal); R79.89 Other specified abnormal findings of blood chemistry; R11.0 Nausea; R06.02 Shortness of breath; E78.5 Hyperlipidemia, unspecified; I10 Essential (primary) hypertension; K21.9 Gastro-esophageal reflux disease without esophagitis; Z85.46 Personal history of malignant neoplasm of prostate; Z79.899 Other long term (current) drug therapy; Z79.82 Long term (current) use of aspirin; Z88.0 Allergy status to penicillin; Z91.013 Allergy to seafood
CPT/HCPCS: 36415; 71045; 80048; 80076; 82550; 82553; 83880; 84484; 85025; 85610; 85730; 93005; J1650

== ENCOUNTER 2019-08-01 10:50 | Observation (INO) | payer MEDICARE, OTHER ==
[2019-08-01] MEDS ORDERED: HYDROCOD/APAP 5/325 (ER DISP) #3 TAB PO ONE (11:00)
[2019-08-01] MEDS ORDERED: ENOXAPARIN SODIUM 80 MG/0.8 ML SYG SUBCU ONE (11:20)
[2019-08-01] MEDS ORDERED: HYDROcodone 5MG/APAP 325MG 1 EA TAB ONE (11:21)
[2019-08-01] MEDS ORDERED: HYDROcodone 5MG/APAP 325MG 1 EA TAB PO ONE (11:24)
[2019-08-01] MEDS ORDERED: amLODIPine BESYLATE 5 MG TAB PO ONE (11:30)
[2019-08-01] MEDS ORDERED: METOPROLOL SUCCINATE XL 50 MG TAB PO ONE (11:30)
--- NOTE | 2019-08-01 11:55 | RAD ---
EXAM: XR Chest, 1 View CLINICAL HISTORY: acute left upper mid chest pain TECHNIQUE: Frontal view of the chest. COMPARISON: 06/10/2019. FINDINGS: Limitations: None. Lungs: Unremarkable. No consolidation. Pleural space: Unremarkable. No pneumothorax. Heart: Unremarkable. No cardiomegaly. Mediastinum: Unremarkable. Bones/joints: Old left clavicle fracture with fixation wire unchanged. IMPRESSION: No acute findings in the chest. Electronically signed by: Iris Cavazos MD 08/01/2019 11:53 AM [facility]
--- NOTE | 2019-08-01 15:01 | ED.PDOC ---
History of Present Illness - General Chief Complaint: Cardiovascular Problem Stated Complaint: Chest pain, SOB Time Seen by Provider: 08/01/19 10:51 Source: patient Exam Limitations: no limitations - History of Present Illness Initial Comments: the patient's a 84-year-old male presenting to the emergency room secondary to chest pain that started after breakfast this morning. It did improve with a dose of nitroglycerin given by EMS. The patient had nitroglycerin of his own but did not take it. The patient had 2 stents placed about 6 weeks ago and has not really had any chest pain since. 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 Again the pain did start after breakfast. He is currently not having any pain u antonio arrival here. No palpitations. He does take its potent antiplatelet drug. No palpitations. No syncope or near syncope. No headache. He does have a long-standing history of uncontrolled hypertension. His dial maker. Apparently just start him on a new blood pressure medicine a few weeks ago. His blood pressures have not yet been controlled. Blood pressures here have been as high as in the 230s over 120s.pain was described as a 7 out of 10 at its worst. It was just to the left of the mid sternum.the patient does take a nitroglycerin patch at night but removes it in the morning. Timing/Duration: 1/2 hour Severity: moderate Improving Factors: medication Worsening Factors: nothing Associated Symptoms: chest pain Allergies/Adverse Reactions: Allergies Penicillins Allergy (Verified 08/01/19 11:09) Unknown Shellfish Allergy Allergy (Verified 08/01/19 11:09) Rash Home Medications: Ambulatory Orders Fluoxetine HCl 20 mg PO DAILY 11/17/18 Metoprolol Succinate [Metoprolol Succinate ER] 50 mg PO DAILY 11/17/18 Ondansetron [Zuplenz] 4 mg PO PRN PRN 11/17/18 Oxcarbazepine 150 mg PO BID 11/17/18 Rosuvastatin Calcium 0.5 tablet PO DAILY 11/17/18 Aspirin [Aspirin Low Strength] 81 mg PO DAILY 06/10/19 Divalproex Sodium [Depakote ER] 250 mg PO BEDTIME 06/10/19 Omeprazole Magnesium [Prilosec Otc] 20 mg PO DAILY 06/10/19 Rizatriptan Benzoate [Maxalt] 10 mg PO Q2H PRN 06/10/19 Sucralfate Tab [Carafate Tab] 1 gm PO ACHS 06/10/19 Losartan Potassium [Cozaar] 50 mg PO DAILY 08/01/19 Nitroglycerin [Nitro-Dur] 0.4 mg TD PRN PRN 08/01/19 Ticagrelor [Brilinta] 90 mg PO BID 08/01/19 Review of Systems - Review of Systems Constitutional: States: no symptoms reported EENTM: States: no symptoms reported Respiratory: States: no symptoms reported Cardiology: States: chest pain Gastrointestinal/Abdominal: States: no symptoms reported Genitourinary: States: no symptoms reported Musculoskeletal: States: no symptoms reported Skin: States: no symptoms reported Neurological: States: no symptoms reported Endocrine: States: no symptoms reported All other Systems: No Change from Baseline Past Medical History (General) - Patient Medical History Hx Stroke: No Hx Cardiac Disorders: Yes - stents Hx Congestive Heart Failure: No Hx Hypertension: Yes Hx Diabetes: No Hx Gastroesophageal Reflux: Yes Hx Cancer: Yes - prostrate Hx MRSA: No Surgical History: cancer surgery - Vaccination History Hx Influenza Vaccination: Yes Hx Pneumococcal Vaccination: Yes - Social History Hx Tobacco Use: No Hx Alcohol Use: Yes - not currently Hx Substance Use: No Hx Substance Use Treatment: No Hx Depression: No - Activities of Daily Living Long Term/Assisted Living (if applicable):: [facility] - Female History Patient is a Female of Child Bearing Age (10 -59 yrs old): No Patient : No Family Medical History - Family History Father Living Status: Cause of : CVA Physical Exam - Physical Exam General Appearance: Alert, Comfortable, No apparent distress Eye Exam: bilateral normal Ears, Nose, Throat: hearing grossly normal, normal ENT inspection Neck: full range of motion, supple Respiratory: lungs clear, normal breath sounds, no respiratory distress, no accessory muscle use Cardiovascular/Chest: normal peripheral pulses, regular rate, rhythm, no edema Peripheral Pulses: radial,right: 2+, radial,left: 2+, dorsalis pedis,right: 2+, dorsalis pedis,left: 2+ Gastrointestinal/Abdominal: non tender, soft Rectal Exam: deferred Back Exam: no CVA tenderness, no vertebral tenderness Extremity: non-tender, normal inspection, no pedal edema, normal capillary refill 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, alert, normal mood/affect, oriented x 3 Skin Exam: normal color Comments: Vital Signs - 24 hr 08/01/19 08/01/19 08/01/19 10:50 10:52 11:30 Temperature 96.9 F L Pulse Rate [ 62 62 59 L pulse ox] Respiratory 18 18 23 Rate Blood Pressure 192/86 211/83 [R brachial] O2 Sat by Pulse 99 98 Oximetry 08/01/19 08/01/19 08/01/19 12:30 13:30 14:30 Temperature 97.6 F Pulse Rate [ 60 55 L 56 L pulse ox] Respiratory 21 21 17 Rate Blood Pressure 194/75 175/77 180/73 [R brachial] O2 Sat by Pulse 97 95 98 Oximetry Progress - Progress Progress: 08/01/19 15:03 the patient is an 84-year-old male presenting to the emergency room secondary to chest pain that has now resolved. He does have a significant coronary history and does have uncontrolled hypertension. The patient will be admitted for further monitoring and further intervention for his hypertension. He has received a dose of Lovenox. He has received additional doses of metoprolol, losartan and a dose of amlodipine. Blood pressures are improving slowly. The patient again is currently asymptomatic. The source of the chest pain may be cardiac but it may also be esophageal given his history. The patient does bear monitoring given his risk factors and history. - Results/Orders Results/Orders: chest x-ray shows no acute pathology. EKG shows normal sinus rhythm with a normal axis. Normal R-wave progression. Normal QT interval. No ST segment or T-wave changes indicative of acute ischemia. This EKG is consistent with previous EKGs. Laboratory Tests 08/01/19 08/01/19 08/01/19 10:59 10:59 10:59 WBC 8.1 RBC 4.04 L Hgb 11.5 L Hct 34.5 L MCV 85.5 MCH 28.5 MCHC 33.3 RDW 15.5 H Plt Count 209 MPV 8.6 Absolute Neuts (auto) 4.60 Absolute Lymphs (auto) 2.30 Absolute Monos (auto) 1.00 H Absolute Eos (auto) 0.10 Absolute Basos (auto) 0.10 Neutrophils % 57.2 Lymphocytes % 28.7 Monocytes % 12.3 H Eosinophils % 1.1 Basophils % 0.7 PT 9.5 INR 0.95 PTT (SP) 24.1 Sodium 133 L Potassium 3.9 Chloride 98 L Carbon Dioxide 25 Anion Gap 13.9 BUN 15 Creatinine 0.94 BUN/Creatinine Ratio 16.0 Random Glucose 87 Serum Osmolality 266.6 L Calcium 9.0 Magnesium 2.1 Total Bilirubin 0.4 AST 30 ALT 12 Alkaline Phosphatase 118 Creatine Kinase 57 CK-MB (CK-2) 1.1 CK-MB (CK-2) % Not Reportable Troponin I < 0.02 B-Natriuretic Peptide 130.0 H Serum Total Protein 8.0 Albumin 4.2 Globulin 3.8 H Albumin/Globulin Ratio 1.1 08/01/19 14:03 WBC RBC Hgb Hct MCV MCH MCHC RDW Plt Count MPV Absolute Neuts (auto) Absolute Lymphs (auto) Absolute Monos (auto) Absolute Eos (auto) Absolute Basos (auto) Neutrophils % Lymphocytes % Monocytes % Eosinophils % Basophils % PT INR PTT (SP) Sodium Potassium Chloride Carbon Dioxide Anion Gap BUN Creatinine BUN/Creatinine Ratio Random Glucose Serum Osmolality Calcium Magnesium Total Bilirubin AST ALT Alkaline Phosphatase Creatine Kinase 49 CK-MB (CK-2) 0.9 CK-MB (CK-2) % Not Reportable Troponin I < 0.02 B-Natriuretic Peptide Serum Total Protein Albumin Globulin Albumin/Globulin Ratio Departure - Departure Clinical Impression: Chest pain, Hypertensive urgency Disposition: Admit Patient Departure Forms: ED Discharge - Pt. Copy, Patient Portal Self Enrollment Referrals: Hair Queen III, MD [Primary Care Provider] - 1-2 Weeks Home Medications: Ambulatory Orders Fluoxetine HCl 20 mg PO DAILY 11/17/18 Metoprolol Succinate [Metoprolol Succinate ER] 50 mg PO DAILY 11/17/18 Ondansetron [Zuplenz] 4 mg PO PRN PRN 11/17/18 Oxcarbazepine 150 mg PO BID 11/17/18 Rosuvastatin Calcium 0.5 tablet PO DAILY 11/17/18 Aspirin [Aspirin Low Strength] 81 mg PO DAILY 06/10/19 Divalproex Sodium [Depakote ER] 250 mg PO BEDTIME 06/10/19 Omeprazole Magnesium [Prilosec Otc] 20 mg PO DAILY 06/10/19 Rizatriptan Benzoate [Maxalt] 10 mg PO Q2H PRN 06/10/19 Sucralfate Tab [Carafate Tab] 1 gm PO ACHS 06/10/19 Losartan Potassium [Cozaar] 50 mg PO DAILY 08/01/19 Nitroglycerin [Nitro-Dur] 0.4 mg TD PRN PRN 08/01/19 Ticagrelor [Brilinta] 90 mg PO BID 08/01/19 Decision To Admit - Decistion To Admit Decision to Admit Reason: Medical Nature Decision to Admit Date: 08/01/19 Decision to Admit Time: 15:05
--- NOTE | 2019-08-01 15:42 | HP ---
SUPERVISING PHYSICIAN: Javier Portillo M.D. CHIEF COMPLAINT: Chest pain and shortness of breath. HISTORY OF PRESENT ILLNESS: Mr. Savage is an 84 year-old male patient with a longstanding history of severe coronary artery disease. He just recently had a non-ST segment elevation myocardial infarction with stent placements in the left anterior descending in May 2019. This morning, he started experiencing some chest pain shortly after breakfast. It did improve with a single dose of Nitroglycerin that was given by EMS. He endorses that he has really not had an chest pain since his stent placements, but he also does have a history of esophageal dysfunction and has had several dilations in the past. On arrival to the Emergency Room, he was pain free and was denying any palpitations. He has recently been started on Brilinta. He also had a longstanding history of uncontrolled hypertension that is followed by his corn husker machine operator and was recently started on some new medications a few weeks back, and has had blood pressures noted to be as high as 230s. Today's pain he was rating 7/10 at its worst and was noting that it was in in the left to the mid sternum. it is also noted that he is normally on a Nitro patch that is started at night but removed in the morning. Again in the Emergency Room, he was actually pain free. He was showing to be significantly hypertensive initially on presentation with blood pressure 211/83, heart rate 62, satting 98% on room air and was afebrile. He was treated with Norvasc, Catapres, metoprolol and Cozaar. He was also given Lovenox 80 mg initially in the Emergency Room. His blood pressure did improve slightly with the lowest noted in the Emergency Room to be at 175/77. His laboratory studies showed he had 2 sets of cardiac enzymes that were all within normal limits at less than 0.02. He was showing a mildly low sodium at 133, otherwise electrolytes were within normal limits. Magnesium and calcium were both normal. Liver functions were all within normal limits. Coagulation studies showed normal PT and PTT. His EKG showed normal sinus rhythm with no ST segment or T wave changes indicating acute ischemia and compared to previous was consistent with no acute findings. Given his past recent stents, severe cardiovascular disease and risk factors, Dr. Carrillo, Emergency Room physician, requested that the patient be placed in observation for further extended rule out for acute coronary syndrome. He was placed in observation in stable condition and was pain free at time of admission. PAST MEDICAL HISTORY: 1. Coronary artery sclerosis disease with previous myocardial infarction in May 2019 with status post stenting of the left anterior descending artery. 2. Hypertension without congestive heart failure with last echocardiogram done in May 2019 showing an ejection fraction of 50 to 55%. 3. Hyperlipidemia. 4. History of esophageal strictures with dilations. 5. History of renal stones in 2018. 6. Bipolar disorder. PAST SURGICAL HISTORY: 1. Coronary artery stent placement with 3 drug-alluding stents in 2011 and then again in May 2019 in the arch of the left anterior descending artery. 2. Laminectomy times 2 in 2014. 3. Two rotator cuff surgeries of the left shoulder. 4. Prostatectomy for cancer in 1999. 5. Bilateral cataracts. HOME MEDICATIONS: 1. Brilinta 90 mg b.i.d. 2. Zofran as needed every 4 hours. 3. Oxcarbazepine 150 mg daily. 4. Pantoprazole 40 mg 2 times daily. 5. Meloxicam 7.5 mg daily. 6. Metoprolol succinate 50 mg extended release daily. 7. Fluoxetine 20 mg daily. 8. Divalproex 500 mg extended release t.i.d. 9. Aspirin 81 mg daily. 10. Losartan 100 mg daily. 11. Rosuvastatin 0.5 mg daily. ALLERGIES: NO KNOWN DRUG ALLERGIES. FAMILY HISTORY: Father at age 86 due to cerebrovascular accident. Mother at age 80 due to extensive heart disease. He has 1 daughter who is healthy. 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 He is . Currently lives at [facility]. He has never smoked. Does not drink or use illicit drugs. REVIEW OF SYSTEMS: CONSTITUTIONAL: Denies any chills, fevers, general malaise. HEENT: Negative for any headaches, vision changes, sore throat. 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 CARDIOVASCULAR: As noted in History of Present Illness, chest pain. Denies any palpitations or syncopal episodes. GASTROINTESTINAL: Denies any nausea, vomiting, diarrhea, constipation or abdominal pains. GENITOURINARY: Denies any dysuria, hematuria or polyuria. MUSCULOSKELETAL: Negative for any joint swelling or arthralgias. SKIN: No reported unexplained changes, lesions, moles or rashes. NEUROLOGIC: Negative for any headaches, vision changes, syncopal episodes, seizures or ataxia. HEMATOLOGIC: Denies any easy bruising, unexplained bleeding or transfusion reactions. PHYSICAL EXAMINATION: VITAL SIGNS: Initially in the Emergency Room, initial blood pressure showed to be 211/83 with heart rate 59. He was afebrile at 96.9 with respirations 21 to 23, showing 98% saturation on room air. At time of admission to the Medical/Surgical floor, he was once again showing to be hypertensive with blood pressure 203/82 with heart rate 64, afebrile, satting 99% on room air. GENERAL: The patient is resting comfortably. Appears to be in no acute distress. Denied any chest pains. He was alert. HEENT: Hearing aids in place with extreme hearing loss noted. NECK: Supple, non-tender. Full range of motion. Oropharynx was pink and moist without any lesions. CHEST: Lung sounds were clear to auscultation without any obvious rhonchi, wheezing or rales. CARDIOVASCULAR: Regular rate and rhythm without appreciable murmurs, gallops, or rubs. ABDOMEN: Soft, non-tender. Positive bowel sounds. EXTREMITIES: Without any edema, clubbing or cyanosis. BACK: Exam was without any CVA tenderness or vertebral tenderness. NEUROLOGIC: Cranial nerves II-XII are grossly intact. He is alert and oriented times three. SKIN: Warm, pink and dry. LABORATORY: CBC showed normal white count at 8,100. He was mildly anemic with 11.5, hematocrit 34.5 with a normocytic normochromic presentation. RBC indices with a platelet count of 209,000. Differential showed to be without a left shift. Coagulation studies noted PT and PTT to be normal. Chemistries showed a mildly low sodium at 133, potassium was normal at 3.9, BUN 15, creatinine 0.94, calcium 9, magnesium 2.0. Liver functions are all within normal limits. Two sets of troponins prior to admission were less than 0.02. BNP was only slightly elevated at 130. RADIOLOGY: Chest x-ray per radiology interpretation showed no acute findings in the chest. ASSESSMENT: 1. Chest pain rule out with extensive history of coronary artery disease, recent myocardial infarction in May 2019 with stent placement times 2 on Brilinta. 2. Poorly controlled hypertension with hypertensive urgency on admission. 3. Electrolyte imbalance with a mild hypokalemia. 4. History of bipolar disorder. 5. History of esophageal strictures with esophageal dilations. PLAN: Mr. Savage is going to be placed in observation for extended cardiac rule out to further rule out any developing coronary syndrome. He was given Lovenox 80 mg in the Emergency Room. He is already on antiplatelet with Brilinta. Will put him on cardiac telemetry. He is pain free on admission, although he is showing to be poorly controlled on hypertension. He was given clonidine prior to admitting to the floor. Will go ahead and start him back on his Nitro patch at this at admission and monitor his blood pressure closely. Will resume his home medications once those are available as appropriate to care. He will be on a cardiac diet. I would anticipate his length of stay to be 1 to 2 days, probably discharge him tomorrow with need to followup with a corn husker machine operator, Dr. Walden in [place] and his primary care physician, Dr. Queen. Until we can transition home to continue with outpatient management will continue to monitor and treat as needed. #[id number] [facility]
[2019-08-01] MEDS ORDERED: cloNIDine HCL 0.1 MG TAB ONE ×3 (16:32→17:31)
[2019-08-01] MEDS ORDERED: LOSARTAN POTASSIUM 100 MG TAB ONE (16:38)
[2019-08-01] MEDS ORDERED: NITROGLYCERIN 0.4 MG/HR PATCH TOP ONE (17:09)
[2019-08-01] MEDS ORDERED: ACETAMINOPHEN 325 MG TAB PO PRN (17:13)
[2019-08-01] MEDS ORDERED: SODIUM CHLORIDE 0.9% (FLUSH) 10 ML SYG IV PRN (17:13)
[2019-08-01] MEDS ORDERED: MORPHINE SULFATE INJ 10 MG/ML VIAL IV PRN (17:13)
[2019-08-01] MEDS ORDERED: NITROGLYCERIN 0.4 MG 25 EA TAB SL PRN (17:13)
[2019-08-01] MEDS ORDERED: cloNIDine PATCH 0.2 MG/24HR 0.2 MG PATCH TD ONE (17:17)
[2019-08-01] MEDS ORDERED: cloNIDine HCL 0.1 MG TAB PO ONE ×2 (17:30→19:43)
[2019-08-01] MEDS ORDERED: IV SET AND CAP CHANGE INJ INJ SCH (17:30)
[2019-08-01] MEDS: NITROGLYCERIN 0.4 MG/HR PATCH TOP SCH (17:33)
[2019-08-01] MEDS ORDERED: PROMETHAZINE W/CODEINE SYR 5 ML UD PO PRN (18:38)
[2019-08-01] MEDS ORDERED: OXcarbazepine 300 MG TAB PO ONE (19:29)
[2019-08-01] MEDS: SUCRALFATE 1 GM TAB PO SCH (20:35)
[2019-08-01] MEDS: OXCARBAZEPINE 150 MG PO SCH (20:36)
[2019-08-01] MEDS: NON-FORMULARY MEDICATION 1 EA MIS (Ticagrelor [Brilinta] 90 MG) PO SCH (20:36)
[2019-08-01] MEDS: SODIUM CHLORIDE 0.9% (FLUSH) 10 ML SYG IV SCH (20:36)
[2019-08-01] MEDS ORDERED: DIVALPROEX SODIUM ER 250 MG TAB PO SCH (21:00)
[2019-08-02] MEDS: SUCRALFATE 1 GM TAB PO SCH ×2 (06:15→11:33)
[2019-08-02] MEDS ORDERED: OMEPRAZOLE CAP 20 MG CAP PO SCH (09:00)
[2019-08-02] MEDS ORDERED: LOSARTAN POTASSIUM 25 MG TAB PO SCH (09:00)
[2019-08-02] MEDS ORDERED: FLUoxetine HCL 20 MG CAP PO SCH (09:00)
[2019-08-02] MEDS ORDERED: ASPIRIN (CHEWABLE) 81 MG TAB PO SCH (09:00)
[2019-08-02] MEDS ORDERED: METOPROLOL SUCCINATE XL 50 MG TAB PO SCH (09:00)
[2019-08-02] MEDS ORDERED: OXcarbazepine 300 MG TAB PO ONE (09:03)
[2019-08-02] MEDS ORDERED: OMEPRAZOLE CAP 20 MG CAP ONE (09:04)
[2019-08-02] MEDS ORDERED: LOSARTAN POTASSIUM 25 MG TAB ONE (09:04)
[2019-08-02] MEDS: NITROGLYCERIN 0.4 MG/HR PATCH TOP SCH (09:07)
[2019-08-02] MEDS: OXCARBAZEPINE 150 MG PO SCH (09:09)
[2019-08-02] MEDS: SODIUM CHLORIDE 0.9% (FLUSH) 10 ML SYG IV SCH (09:11)
[2019-08-02] MEDS ORDERED: OXcarbazepine 300 MG TAB PO SCH (09:15)
[2019-08-02] MEDS: NON-FORMULARY MEDICATION 1 EA MIS (Ticagrelor [Brilinta] 90 MG) PO SCH (09:39)
[2019-08-02 11:05] VITALS: BP 147/82; TEMP 97.1; O2SAT 100
[2019-08-02] MEDS ORDERED: LOSARTAN POTASSIUM 25 MG TAB PO ONE (14:48)
[2019-08-02] MEDS ORDERED: cloNIDine HCL 0.1 MG TAB PO ONE (16:29)
[2019-08-02] MEDS ORDERED: REMOVE OLD PATCH TOP SCH (21:00)
[2019-08-02] MEDS ORDERED: SIMVASTATIN 20 MG TAB PO SCH (21:00)
--- NOTE | 2019-08-03 15:34 | DS ---
SUPERVISING PHYSICIAN: Willian Carrillo MD ADMISSION DIAGNOSIS: 1. Chest pain rule out with extensive history of coronary artery disease, recent myocardial infarction in May 2019 with stent placement times 2 on Brilinta. 2. Poorly controlled hypertension with hypertensive urgency on admission. 3. Electrolyte imbalance with a mild hypokalemia. 4. History of bipolar disorder. 5. History of esophageal strictures with esophageal dilations. DISCHARGE DIAGNOSIS: 1. Chest pain rule out with extensive history of coronary artery disease, recent myocardial infarction in May 2019 with stent placement times 2 on Brilinta with no signs of acute coronary syndrome, etiology uncertain, but likely due to gastroesophageal spasm. 2. Poorly controlled hypertension with hypertensive urgency on admission with the patient's blood pressure controlled well prior to discharge. 3. Electrolyte imbalance with a mild hypokalemia, return to baseline with treatment. 4. History of bipolar disorder. 5. History of esophageal strictures with esophageal dilations. REASON FOR HOSPITALIZATION: Mr. Savage is an 84 year-old male patient with a longstanding history of severe coronary artery disease. He just recently had a non-ST segment elevation myocardial infarction with stent placements in the left anterior descending in May 2019. This morning, he started experiencing some chest pain shortly after breakfast. It did improve with a single dose of Nitroglycerin that was given by EMS. He endorses that he has really not had an chest pain since his stent placements, but he also does have a history of esophageal dysfunction and has had several dilations in the past. On arrival to the Emergency Room, he was pain free and was denying any palpitations. He has recently been started on Brilinta. He also had a longstanding history of uncontrolled hypertension that is followed by his life insurance salesperson and was recently started on some new medications a few weeks back, and has had blood pressures noted to be as high as 230s. Today's pain he was rating 7/10 at its worst and was noting that it was in in the left to the mid sternum. it is also noted that he is normally on a Nitro patch that is started at night but removed in the morning. Again in the Emergency Room, he was actually pain free. He was showing to be significantly hypertensive initially on presentation with blood pressure 211/83, heart rate 62, satting 98% on room air and was afebrile. He was treated with Norvasc, Catapres, metoprolol and Cozaar. He was also given Lovenox 80 mg initially in the Emergency Room. His blood pressure did improve slightly with the lowest noted in the Emergency Room to be at 175/77. His laboratory studies showed he had 2 sets of cardiac enzymes that were all within normal limits at less than 0.02. He was showing a mildly low sodium at 133, otherwise electrolytes were within normal limits. Magnesium and calcium were both normal. Liver functions were all within normal limits. Coagulation studies showed normal PT and PTT. His EKG showed normal sinus rhythm with no ST segment or T wave changes indicating acute ischemia and compared to previous was consistent with no acute findings. Given his past recent stents, severe cardiovascular disease and risk factors, Dr. Carrillo, Emergency Room physician, requested that the patient be placed in observation for further extended rule out for acute coronary syndrome. He was placed in observation in stable condition and was pain free at time of admission. LABORATORY: White count 8,100, hemoglobin 11.5, hematocrit 34.5, platelet count 209,000, differential without a left shift. Coagulation studies showed normal PT, PTT on admission and sodium was low at 133 and at discharge had normalized. His creatinine had gone up a little bit to 1.79. Liver functions were all within normal limits. Troponins were all less than 0.02. EKG showed normal sinus rhythm with no ST or T wave changes to indicate ischemia or acute injury pattern. RADIOLOGY: Chest x-ray showed no acute findings in the chest. HOSPITAL COURSE: Mr. Savage was admitted for further chest pain rule out and further management of hypertension. He was given some clonidine, nitro patch and had good response to blood pressure management. DISCHARGE ASSESSMENT: VITAL SIGNS: On the morning of discharge, his blood pressure was 147/82, heart rate 48, temperature 97.1, saturation 100% on room air. GENERAL: The patient was resting comfortably without any acute distress. CHEST: Clear to auscultation. HEART: Regular rate and rhythm. ABDOMEN: Soft, nontender, positive bowel sounds. EXTREMITIES: Without edema. NEUROLOGIC: Alert and oriented times 3. PLAN: Mr. Savage was discharged to followup with Dr. Queen in the following weeks. He is to return to the hospital should he have any worsening symptoms. He was to resume his home medications as prior to hospitalization. Diet was to resume usual diet as tolerated. Activity as tolerated. No new medications were prescribed on discharge. CONDITION ON DISCHARGE: Stable and improved. DISPOSITION: The patient was discharged to care of family members. #[id number] [facility]
== END 2019-08-02 12:24 ==
LOC: ER 10:50 → MS 15:39
PROVIDERS: ADMIT Nurse Practitioner Family; ATTEND Nurse Practitioner Family
DX: R07.2 Precordial pain (principal); I25.10 Atherosclerotic heart disease of native coronary artery without angina pectoris; I25.2 Old myocardial infarction; E87.1 Hypo-osmolality and hyponatremia; I16.0 Hypertensive urgency; I10 Essential (primary) hypertension; E87.6 Hypokalemia; E87.8 Other disorders of electrolyte and fluid balance, not elsewhere classified; F31.9 Bipolar disorder, unspecified; Z95.5 Presence of coronary angioplasty implant and graft; Z79.02 Long term (current) use of antithrombotics/antiplatelets; Z79.1 Long term (current) use of non-steroidal anti-inflammatories (NSAID); Z79.82 Long term (current) use of aspirin; Z79.899 Other long term (current) drug therapy; Z88.0 Allergy status to penicillin; Z91.013 Allergy to seafood; Z87.442 Personal history of urinary calculi; Z85.46 Personal history of malignant neoplasm of prostate; Z82.3 Family history of stroke; Z82.49 Family history of ischemic heart disease and other diseases of the circulatory system
CPT/HCPCS: 96372; J1650; 80048; 82553 ×2; 80053; 36415 ×2; 85025; 82550 ×2; 83735; 85730; 85610; 84484 ×3; 83880; 71045; 94760; 99285; 93005; G0378

== ENCOUNTER → 2019-08-30 | Outpatient (CLI) | payer MEDICARE, OTHER | LOC: GMAL 10:36 | PROVIDERS: ATTEND Family Medicine | DX: F41.8 Other specified anxiety disorders (principal) ==

== ENCOUNTER → 2019-10-07 | Outpatient (CLI) | payer MEDICARE, OTHER | LOC: GMAL 10:44 | PROVIDERS: ATTEND Family Medicine | DX: D51.3 Other dietary vitamin B12 deficiency anemia (principal); D50.8 Other iron deficiency anemias ==

== ENCOUNTER → 2020-04-03 | Outpatient (CLI) | payer MEDICARE, OTHER | LOC: GMA MATASK 17:12 | PROVIDERS: ATTEND Family Medicine | DX: R30.0 Dysuria (principal) ==

== ENCOUNTER → 2020-04-13 | Outpatient (CLI) | payer MEDICARE, OTHER | END | disposition home or self-care (01) | LOC: BFHH 13:55 | PROVIDERS: ATTEND Family Medicine | DX: I10 Essential (primary) hypertension (principal); D51.9 Vitamin B12 deficiency anemia, unspecified; E55.9 Vitamin D deficiency, unspecified; R30.0 Dysuria; N17.9 Acute kidney failure, unspecified; B50.9 Plasmodium falciparum malaria, unspecified ==

== ENCOUNTER → 2020-06-23 | Outpatient (CLI) | payer MEDICARE, OTHER | LOC: BFHH 10:16 | PROVIDERS: ATTEND Family Medicine | DX: D51.0 Vitamin B12 deficiency anemia due to intrinsic factor deficiency (principal); D50.8 Other iron deficiency anemias; I25.10 Atherosclerotic heart disease of native coronary artery without angina pectoris; I10 Essential (primary) hypertension ==

== ENCOUNTER → 2020-06-27 | Outpatient (CLI) | payer MEDICARE, OTHER | LOC: BFHH 11:06 | PROVIDERS: ATTEND Family Medicine | DX: I25.10 Atherosclerotic heart disease of native coronary artery without angina pectoris (principal); I10 Essential (primary) hypertension; D50.8 Other iron deficiency anemias; I25.2 Old myocardial infarction; F31.9 Bipolar disorder, unspecified; Z95.5 Presence of coronary angioplasty implant and graft ==

== ENCOUNTER 2020-06-29 11:34 | Emergency (ER) | payer MEDICARE, OTHER ==
--- NOTE | 2020-06-29 12:03 | ED.PDOC ---
History of Present Illness - General Time Seen by Provider: 06/29/20 11:39 Source: patient, RN notes reviewed, Vital Signs reviewed, EMS notes reviewed Exam Limitations: no limitations - History of Present Illness Initial Comments: 85 yo male comes in from assistance living with several weeks of cough, started getting worsening shortness of breath so came in for evaluation. Was seen by pcp earlier this week and is having allergy testing. Denies recent travel or immobilization. no recent hospitalization. no hx of CHF, does have hx of CAD. no hx of copd. Allergies/Adverse Reactions: Allergies Penicillins Allergy (Verified 06/29/20 12:32) Unknown Shellfish Allergy Allergy (Verified 06/29/20 12:32) Rash Home Medications: Ambulatory Orders Fluoxetine HCl 20 mg PO DAILY 11/17/18 Metoprolol Succinate [Metoprolol Succinate ER] 50 mg PO DAILY 11/17/18 Ondansetron [Zuplenz] 4 mg PO PRN PRN 11/17/18 Oxcarbazepine 150 mg PO BID 11/17/18 Rosuvastatin Calcium 0.5 tablet PO DAILY 11/17/18 Aspirin [Aspirin Low Strength] 81 mg PO DAILY 06/10/19 Divalproex Sodium [Depakote ER] 250 mg PO BEDTIME 06/10/19 Omeprazole Magnesium [Prilosec Otc] 20 mg PO DAILY 06/10/19 Rizatriptan Benzoate [Maxalt] 10 mg PO Q2H PRN 06/10/19 Sucralfate Tab [Carafate Tab] 1 gm PO ACHS 06/10/19 Losartan Potassium [Cozaar] 50 mg PO DAILY 08/01/19 Nitroglycerin [Nitro-Dur] 0.4 mg TD PRN PRN 08/01/19 Ticagrelor [Brilinta] 90 mg PO BID 08/01/19 Azithromycin [Zithromax Z-Jarod] 250 mg PO DAILY #6 tab 06/29/20 Prednisone 20 mg PO DAILY #5 tab 06/29/20 Review of Systems - Review of Systems Constitutional: Denies: chills, fever, malaise EENTM: Denies: blurred vision, ear discharge, nose pain, nose congestion, throat swelling, mouth swelling Respiratory: States: cough, short of breath. Denies: wheezing Cardiology: Denies: chest pain, edema, palpitations, syncope Gastrointestinal/Abdominal: Denies: abdominal pain, diarrhea, nausea Genitourinary: Denies: dysuria, frequency, hematuria Musculoskeletal: Denies: joint swelling, muscle pain, muscle stiffness Skin: Denies: change in hair/nails, dryness, rash Neurological: Denies: headache, numbness, paresthesia, pre-existing deficit, tingling, tremors, weakness Endocrine: Denies: unexplained weight gain, unexplained weight loss Hematologic/Lymphatic: Denies: blood clots, easy bleeding, easy bruising Past Medical History (General) - Patient Medical History Hx Seizures: No Hx Stroke: No Hx Asthma: No Hx of COPD: No Hx Cardiac Disorders: Yes - stents Hx Congestive Heart Failure: Yes Hx Pacemaker: No Hx Hypertension: Yes Hx Diabetes: No Hx Gastroesophageal Reflux: Yes Hx Cancer: Yes - prostrate Hx MRSA: No - Vaccination History Hx Influenza Vaccination: Yes Hx Pneumococcal Vaccination: Yes - Social History Hx Tobacco Use: No Hx Alcohol Use: No Hx Substance Use: No Hx Substance Use Treatment: No Hx Depression: No Hx Physical Abuse: No Hx Emotional Abuse: No - Female History Patient : No Family Medical History - Family History Father Living Status: Age at (years of age): 86 Cause of : CVA Hx Family Asthma: Yes - Emphysema Hx Family Congestive Heart Failure: No Hx Family Stroke: Yes Hx Cardiac Disease: Yes Hx Family Diabetes: No Physical Exam - Physical Exam General Appearance: Alert, Comfortable, No apparent distress, Well Developed, Well Groomed, Well Hydrated, Well Nourished Eyes, Ears, Nose, Throat Exam: PERRL/EOMI, normal ENT inspection, TMs normal Neck: non-tender, full range of motion, supple, normal inspection, carotid bruit Respiratory: chest non-tender, lungs clear, normal breath sounds, no respiratory distress, no accessory muscle use, other - loud hacking cough noted Cardiovascular/Chest: normal peripheral pulses, regular rate, rhythm, no edema, no gallop, no JVD, no murmur Peripheral Pulses: radial,right: 2+, radial,left: 2+ Gastrointestinal/Abdominal: normal bowel sounds, non tender, soft, no organomegaly, no pulsatile mass Rectal Exam: deferred Extremity: normal range of motion, non-tender, normal inspection, no pedal edema, no calf tenderness Neurologic: orderly II-XII nml as tested, no motor/sensory deficits, alert, normal mood/affect, oriented x 3 Skin Exam: normal color, warm/dry Progress - Progress Progress: partial ddx: covid, copd, chf, pe, pneumonia. COVID negative. Saturating well on RA I recommend CTA as COVID Negative and d-d jeanine elevated. Our current CT scan is down. Patient and family refuse transfer to another facility for CTA. Recommend discuss with family doctor. I will treat with azithromycin should patient have underlying pertussis, however, he most likely is past treatment window. Will also try a course of steroids. The data reviewed when caring for this patient included: nurse notes, prior records, etc. The history and assessments from nurses notes were reviewed and considered, and the patient's home medication list was also reviewed and considered. My assessment and the results of testing completed here in the ED were discussed with the patient/family. All questions were answered, and they express understanding of my assessment and the plan. They have been instructed to return if their symptoms worsen, and have been asked to follow up with their primary care physician to recheck today's presenting complaint. Strict return precautions given. I have reviewed medication, benefits, alternatives and side effects. Patient decided to proceed with medication.vss patient discharged home in stable condition. Bianca Chacon DO #[id number] - Results/Orders Results/Orders: 06/29/20 12:15 EKG STAT Pulse Ox, Continuous Monitoring STAT Laboratory Results WBC 8.2 K/mm3 (4.8-10.8) 06/29/20 12:00 RBC 3.99 M/mm3 (4.70-6.10) L 06/29/20 12:00 Hgb 11.3 gm/dL (14.0-18.0) L 06/29/20 12:00 Hct 32.4 % (42.0-52.0) L 06/29/20 12:00 MCV 81.3 fl (80.0-94.0) 06/29/20 12:00 MCH 28.5 pg (27.0-31.0) 06/29/20 12:00 MCHC 35.0 g/dL (33.0-37.0) 06/29/20 12:00 RDW 15.9 % (11.5-14.5) H 06/29/20 12:00 Plt Count 290 K/mm3 (130-400) 06/29/20 12:00 MPV 7.5 fl (7.40-10.4) 06/29/20 12:00 Absolute Neuts (auto) 4.60 K/uL (1.8-6.8) 06/29/20 12:00 Absolute Lymphs (auto) 2.60 K/uL (1.0-3.4) 06/29/20 12:00 Absolute Monos (auto) 0.90 K/uL (0.2-0.8) H 06/29/20 12:00 Absolute Eos (auto) 0.10 K/uL (0.0-0.4) 06/29/20 12:00 Absolute Basos (auto) 0.10 K/uL (0.0-0.1) 06/29/20 12:00 Neutrophils % 56.1 % (42.0-78.0) 06/29/20 12:00 Lymphocytes % 31.2 % (20.0-50.0) 06/29/20 12:00 Monocytes % 11.3 % (2.0-9.0) H 06/29/20 12:00 Eosinophils % 0.7 % (1.0-5.0) L 06/29/20 12:00 Basophils % 0.7 % (0.0-2.0) 06/29/20 12:00 PT 9.5 SECONDS (9.0-10.9) 06/29/20 12:00 INR < 1.00 (0.9-1.15) 06/29/20 12:00 PTT (SP) 27.5 SECONDS (21.8-31.6) 06/29/20 12:00 D-Dimer, Quantitative 779.0 ng/ml (131-400) H* 06/29/20 12:00 Sodium 130 mmol/L (135-145) L 06/29/20 12:00 Potassium 3.9 mmol/L (3.6-5.0) 06/29/20 12:00 Chloride 95 mmol/L (101-111) L 06/29/20 12:00 Carbon Dioxide 25 mmol/L (21-31) 06/29/20 12:00 Anion Gap 13.9 (12-18) 06/29/20 12:00 BUN 10 mg/dL (7-18) 06/29/20 12:00 Creatinine 0.84 mg/dL (0.6-1.3) 06/29/20 12:00 BUN/Creatinine Ratio 11.9 (10-20) 06/29/20 12:00 Random Glucose 94 mg/dL (70-105) 06/29/20 12:00 Serum Osmolality 259.6 mOsm/L (275-295) L 06/29/20 12:00 Calcium 8.6 mg/dL (8.4-10.2) 06/29/20 12:00 Magnesium 2.0 mg/dL (1.8-2.5) 06/29/20 12:00 Total Bilirubin 0.6 mg/dL (0.2-1.0) 06/29/20 12:00 AST 16 IU/L (10-42) 06/29/20 12:00 ALT 9 IU/L (10-60) L 06/29/20 12:00 Alkaline Phosphatase 103 IU/L (42-121) 06/29/20 12:00 LD Total 137 IU/L (91-180) 06/29/20 12:00 Creatine Kinase 52 IU/L (38-174) 06/29/20 12:00 Troponin I < 0.02 ng/mL (0.01-0.05) 06/29/20 12:00 C-Reactive Protein 6.3 mg/dL (0-1.0) H 06/29/20 12:00 B-Natriuretic Peptide 233.0 pg/ml (0-100) H* 06/29/20 12:00 Serum Total Protein 7.3 gm/dL (6.4-8.2) 06/29/20 12:00 Albumin 3.5 g/dl (3.2-5.5) 06/29/20 12:00 Globulin 3.8 gm/dL (2.3-3.5) H 06/29/20 12:00 Albumin/Globulin Ratio 0.9 (1.1-1.9) L 06/29/20 12:00 - EKG/XRAY/CT EKG: Changed from - when compared to prior OK segment is now shorter. Comments: NSR HR 62, short pR, nonspecific ST Changes XRAY: chest - no acute cardiopulmonary pathology. Departure - Departure Clinical Impression: Cough, D-dimer, elevated Dyspnea Qualifiers: Dyspnea type: unspecified Qualified Code(s): R06.00 - Dyspnea, unspecified Time of Disposition: 15:29 Disposition: Discharge to Home or Self Care Departure Forms: ED Discharge - Pt. Copy, Patient Portal Self Enrollment Instructions: Cough, Adult (DC), Shortness of Breath (Dyspnea), Breathing Exe rcises Diet: resume usual diet Activity: increase activity as tolerated Referrals: Hair Queen III, MD [Primary Care Provider] - 1-2 Days Prescriptions: Prednisone 20 mg PO DAILY #5 tab Azithromycin [Zithromax Z-Jarod] 250 mg PO DAILY #6 tab Home Medications: Ambulatory Orders Fluoxetine HCl 20 mg PO DAILY 11/17/18 Metoprolol Succinate [Metoprolol Succinate ER] 50 mg PO DAILY 11/17/18 Ondansetron [Zuplenz] 4 mg PO PRN PRN 11/17/18 Oxcarbazepine 150 mg PO BID 11/17/18 Rosuvastatin Calcium 0.5 tablet PO DAILY 11/17/18 Aspirin [Aspirin Low Strength] 81 mg PO DAILY 06/10/19 Divalproex Sodium [Depakote ER] 250 mg PO BEDTIME 06/10/19 Omeprazole Magnesium [Prilosec Otc] 20 mg PO DAILY 06/10/19 Rizatriptan Benzoate [Maxalt] 10 mg PO Q2H PRN 06/10/19 Sucralfate Tab [Carafate Tab] 1 gm PO ACHS 06/10/19 Losartan Potassium [Cozaar] 50 mg PO DAILY 08/01/19 Nitroglycerin [Nitro-Dur] 0.4 mg TD PRN PRN 08/01/19 Ticagrelor [Brilinta] 90 mg PO BID 08/01/19 Azithromycin [Zithromax Z-Jarod] 250 mg PO DAILY #6 tab 06/29/20 Prednisone 20 mg PO DAILY #5 tab 06/29/20
--- NOTE | 2020-06-29 12:50 | RAD ---
EXAM DESCRIPTION: Chest,1 View CLINICAL HISTORY: sob COMPARISON: August 01, 2019 IMPRESSION: Single AP portable upright view of the chest shows cardiac silhouette and pulmonary vasculature to be within normal limits. Lungs are normally aerated and clear. No obvious pleural effusion or pneumothorax is seen. Postsurgical changes and healed fracture of the left mid clavicle are again seen. Electronically signed by: Remberto Lacy MD 06/29/2020 12:48 PM [facility]
[2020-06-29] MEDS ORDERED: DEXAMETHASONE INJ 10 MG/ML VIAL IV ONE (13:12)
[2020-06-29] MEDS ORDERED: IPRATROPIUM/ALBUTEROL 3 ML VIAL NEB ONE (13:13)
[2020-06-29] MEDS ORDERED: hydroCHLOROthiazide 12.5 MG CAP PO SCH (14:30)
[2020-06-29 16:31] VITALS: BP 156/89; TEMP 97.4; O2SAT 96
== END 2020-06-29 16:20 | disposition home or self-care (01) ==
LOC: ER 11:34
DX: R06.02 Shortness of breath (principal); R05 Cough; R79.89 Other specified abnormal findings of blood chemistry; I25.10 Atherosclerotic heart disease of native coronary artery without angina pectoris; I11.0 Hypertensive heart disease with heart failure; I50.9 Heart failure, unspecified; K21.9 Gastro-esophageal reflux disease without esophagitis; Z20.828 Contact with and (suspected) exposure to other viral communicable diseases; Z95.5 Presence of coronary angioplasty implant and graft; Z85.46 Personal history of malignant neoplasm of prostate; Z79.899 Other long term (current) drug therapy; Z79.82 Long term (current) use of aspirin; Z88.0 Allergy status to penicillin; Z91.013 Allergy to seafood
CPT/HCPCS: 36415; 71045; 80053; 82550; 83615; 83735; 83880; 84484; 85025; 85379; 85610; 85730; 86140; 87486; 87581; 87633; 87635; 93005; 94640; J1100; J7620

== ENCOUNTER → 2020-08-04 | Outpatient (CLI) | payer MEDICARE, OTHER | LOC: BFHH 08:23 | PROVIDERS: ATTEND Family Medicine | DX: D50.8 Other iron deficiency anemias (principal); I25.10 Atherosclerotic heart disease of native coronary artery without angina pectoris; I10 Essential (primary) hypertension; Z79.02 Long term (current) use of antithrombotics/antiplatelets ==

== ENCOUNTER → 2020-09-29 | Outpatient (CLI) | payer MEDICARE, OTHER | LOC: BFHH 12:07 | PROVIDERS: ATTEND Family Medicine | DX: D50.8 Other iron deficiency anemias (principal); I25.10 Atherosclerotic heart disease of native coronary artery without angina pectoris; I10 Essential (primary) hypertension; E11.65 Type 2 diabetes mellitus with hyperglycemia ==

== ENCOUNTER → 2020-10-06 | Outpatient (CLI) | payer MEDICARE, OTHER | LOC: BFHH 16:30 | PROVIDERS: ATTEND Family Medicine | DX: D50.9 Iron deficiency anemia, unspecified (principal); R06.02 Shortness of breath; R53.83 Other fatigue ==

== ENCOUNTER → 2020-10-07 | Outpatient (CLI) | payer MEDICARE, OTHER | LOC: BFHH 14:00 | PROVIDERS: ATTEND Family Medicine | DX: D50.9 Iron deficiency anemia, unspecified (principal); R06.02 Shortness of breath; R53.83 Other fatigue ==

== ENCOUNTER → 2020-10-19 | Outpatient (CLI) | payer MEDICARE, OTHER | LOC: BFHH 14:36 | PROVIDERS: ATTEND Family Medicine | DX: I25.10 Atherosclerotic heart disease of native coronary artery without angina pectoris (principal); D50.9 Iron deficiency anemia, unspecified; R63.4 Abnormal weight loss; J30.2 Other seasonal allergic rhinitis; R06.02 Shortness of breath; R53.83 Other fatigue; M25.50 Pain in unspecified joint; E87.6 Hypokalemia ==